=== PATIENT | male | born 1945 | race Caucasian/White ===

== ENCOUNTER 2022-05-25 17:21 | Inpatient (IN) | payer MEDICARE, MEDICAID ==
[~2022-05-25] VITALS: Ht 185.4 cm; Wt 73.0 kg
--- NOTE | 2022-05-25 17:21 | NUR ---
TO ER BED 1. [facility]IB [facility],2 EPISODES OF COFFEE GROUND EMESIS THIS PM, STATED HE HAD A BOWEL MOVEMENT THIS MORNING AND NO ABNORMALITY. PT HAS HISTORY OF GI BLEEDS. ATTACHED TO MONITOR, AWAITING MD GUERRERO.
--- NOTE | 2022-05-25 18:10 | NUR ---
IV ESTABLISHED R HAND 20G. LABS DRAWN AND SENT.
[2022-05-25] MEDS ORDERED: ONDANSETRON HCL/PF 4 MG/2 ML VIAL ONE (18:49)
[2022-05-25] MEDS ORDERED: PANTOPRAZOLE 40 MG VIAL ONE ×2 (18:49→21:50)
[2022-05-25] MEDS ORDERED: PANTOPRAZOLE 40 MG VIAL IV ONE ×2 (19:00→22:00)
[2022-05-25] MEDS ORDERED: ONDANSETRON HCL/PF 4 MG/2 ML VIAL IVP ONE (19:00)
[2022-05-25] MEDS ORDERED: IV NS 0.9% 1,000 ML BAG IV ONE (19:00)
--- NOTE | 2022-05-25 19:28 | NUR ---
COVID SWAB COLLECTED AND SENT TO LAB
[2022-05-25 19:53] LABS: ALANINE AMINOTRANSFERASE 11 U/L (12-78); ALBUMIN 2.9 g/dL (3.4-5.0); ALKALINE PHOSPHATASE 81 U/L (46-116); ASPARTATE AMINOTRANSFERASE 11 U/L (15-37); BILIRUBIN,DIRECT 0.1 mg/dL (0.0-0.2); BILIRUBIN,TOTAL 0.3 mg/dL (0.2-1.0); CALCIUM, SERUM 8.6 mg/dL (8.5-10.1); CARBON DIOXIDE 23 mmol/L (21-32); CHLORIDE 111 mmol/L (98-107); CREATININE 1.3 mg/dL (0.6-1.3); GLUCOSE 136 mg/dL (74-106); POTASSIUM 4.1 mmol/L (3.5-5.1); SODIUM SERUM 143 mmol/L (136-145); TOTAL PROTEIN, SERUM 6.8 g/dL (6.4-8.2); UREA NITROGEN, BLOOD 54 mg/dL (7-18)
[2022-05-25 20:06] LABS: BASOPHILS # (AUTO) 0.2 K/uL (0.0-0.2); BASOPHILS % (AUTO) 0.7 % (0.0-2.0); HEMATOCRIT 26 % (39-51); LYMPHOCYTES # (AUTO) 0.3 K/uL (0.8-4.8); LYMPHOCYTES % (AUTO) 1.4 % (20.0-44.0); MEAN CORPUSCULAR HGB CONC 31 g/dl (31.0-36.0); MEAN CORPUSCULAR VOLUME 76 fL (80-96); MONOCYTES # (AUTO) 0.6 K/uL (0.1-1.30); MONOCYTES % (AUTO) 2.4 % (2.0-12.0); NEUTROPHILS # (AUTO) 24.2 K/uL (1.8-8.9); NEUTROPHILS % (AUTO) 95.5 % (43.0-81.0); PLATELET COUNT (AUTO) 444 K/uL (150-450); RED BLOOD CELL COUNT(AUTO) 3.37 MIL/uL (4.5-6.0); WHITE BLOOD COUNT (AUTO) 25.3 K/uL (4.3-11.0)
--- NOTE | 2022-05-25 20:26 | NUR ---
PT TAKEN TO CT VIA JANN
--- NOTE | 2022-05-25 20:43 | NUR ---
PT RETURNED TO ER BED [address]
[2022-05-25 21:15] LABS: LIPASE 63 U/L (73-393)
[2022-05-25] MEDS ORDERED: VANCOMYCIN 1 GM VIAL ONE (21:51)
[2022-05-25] MEDS ORDERED: MINERAL OIL 133 ML (PYXIS) 1 EA ENEMA RC ONE ×2 (22:00→23:21)
[2022-05-25] MEDS ORDERED: VANCOMYCIN 1 GM in IV D5W 250 ML IV ONE (22:00)
[2022-05-25] MEDS ORDERED: ACETAMINOPHEN 325 MG TABLET PO PRN (22:00)
[2022-05-25] MEDS ORDERED: ONDANSETRON HCL/PF 4 MG/2 ML VIAL IVP PRN (22:00)
--- NOTE | 2022-05-25 22:10 | NUR ---
URINE COLLECTED AND SENT TO LAB
--- NOTE | 2022-05-25 22:13 | NUR ---
CATTLE DEALER AT PT'S BEDSIDE
[2022-05-25 22:26] LABS: HEMOGLOBIN 8.2 g/dL (13.5-17.5)
[2022-05-25 22:31] LABS: BILIRUBIN,URINE NEGATIVE (NEGATIVE); COLOR,URINE YELLOW (YELLOW); LEUKOCYTE ESTERASE ,URINE 2+ (NEGATIVE); NITRITE, URINE POSITIVE (NEGATIVE); PH,URINE 5.5 (5.0-8.0); PROTEIN,URINE 2+ mg/dl (NEGATIVE); UGLUCOSE NEGATIVE (NEGATIVE); UROBILINOGEN,URINE 0.2 EU/dL (0.2)
[2022-05-25] MEDS ORDERED: ONDANSETRON HCL/PF - ER 4 MG/2 ML VIAL IV ONE (23:00)
[2022-05-25] MEDS: IV NS 0.9% 1,000 ML IV PRN (23:01)
--- NOTE | 2022-05-25 23:19 | NUR ---
REPORT GIVEN TO STACI Pantoja RN FOR DANNY
[2022-05-25] MEDS ORDERED: IV NS 0.9% 1,000 ML IV ONE (23:30)
[2022-05-26] VITALS (15 sets, daily range): BP systolic 91–130; BP diastolic 49–63
--- NOTE | 2022-05-26 00:25 | NUR ---
RN RECEIVING NOTE FROM ER PATIENT BROUGHT TO UNIT FROM ER BY JANN. PATIENT PHYSICALLY TRANSFERRED FROM [facility] TO BED BY STAFF. A/OX0. NO S/S OF DISTRESS, BREATHING WITHOUT DIFFICULTY ON ROOM AIR. R-HAND #20 INTACT AND PATENT. TELE READS SR 99. SAFETY MEASURES IN PLACE: BED LOCKED AND AT LOWEST POSITION, RAILS UP X2, CALL OROPEZA WITHIN REACH. PATIENT WAS ORIENTED TO UNIT, BUT IS UNABLE TO UNDERSTAND. CALL OROPEZA GIVEN TO PATIENT AND INSTRUCTED ON ITS USE. TELE MONITOR ADMINISTERED TO PATIENT. ALL BELONGINGS ACCOUNTED FOR, LOGGED INTO SHEET, AND PLACE IN CHART. WILL CONTINUE TO MONITOR PATIENT.
--- NOTE | 2022-05-26 00:28 | NUR ---
PT TRANSFERRED TO 325-1 VIA ACLS PROTOCOL. VSS. ALL BELONGINGS WITH PT. PT TOLERATED TRANSFER WELL.
[2022-05-26] MEDS ORDERED: PIPERACILLIN /TAZOBACTAM 3.375 G VIAL IV ONE ×2 (01:13→05:29)
[2022-05-26] MEDS: ZOSYN IVPB 3.375 G in IV D5W 50ml IV SCH ×5 (01:19→23:08)
[2022-05-26] MEDS: IV NS 0.9% 1,000 ML IV PRN (01:19)
[2022-05-26 01:41] LABS: RBC,URINE TOO NUMEROUS TO COUN /HPF (0-2); WBC,URINE 21-50 /HPF (0-3)
[2022-05-26 01:42] LABS: BACTERIA,URINE Moderate /HPF (None Seen)
--- NOTE | 2022-05-26 06:33 | NUR ---
RN CLOSING NOTE PATIENT ASLEEP IN BED. A/OX0. NO S/S OF DISTRESS, BREATHING WITHOUT DIFFICULTY ON ROOM AIR. R-HAND #20 INTACT AND PATENT W/ NS 75ML/HR. TELE READS SR 94. SAFETY MEASURES IN PLACE: BED LOCKED AND AT LOWEST POSITION, RAILS UP X2, CALL OROPEZA WITHIN REACH. WILL ENDORSE TO NEXT SHIFT FOR DANNY.
--- NOTE | 2022-05-26 07:00 | NUR ---
LEAD SHOP OPERATOR OPENING NOTES PATIENT LAYING IN BED, A/O X 0, TOLERATING WELL ON ROOM AIR WITH NO S/S RESPIRATORY DISTRESS. NO COMPLAINTS OF PAIN OR DISCOMFORT AT THIS TIME. R HAND # 20 IV CLEAN, INTACT, AND INFUSING NS @ 75 ML/HR. TELE MONITOR IN PLACE READING NSR 91. SAFETY MEASURES IN PLACE: BED IN LOWEST LOCKED POSITION, SIDE RAILS UP X 2, CALL LIGHT WITHIN REACH. WILL CONTINUE TO MONITOR. Addendum: 05/26/22 at 1509 by SHANNAN DIOR RN BILATERAL SOFT WRIST RESTRAINTS IN PLACE WITH CIRCULATION/MOTOR/SENSATION INTACT DISTALLY X 2.
[2022-05-26 07:29] LABS: CARBON DIOXIDE 21 mmol/L (21-32); CHLORIDE 115 mmol/L (98-107); CHOLESTEROL 87 mg/dL (<200); CREATININE 1.5 mg/dL (0.6-1.3); GLUCOSE 129 mg/dL (74-106); HDL CHOLESTEROL 37 mg/dL (40-60); LDL 44 mg/dL (0-99); MAGNESIUM 2.1 mg/dL (1.8-2.4); PHOSPHORUS 3.5 mg/dL (2.5-4.9); POTASSIUM 3.8 mmol/L (3.5-5.1); SODIUM SERUM 145 mmol/L (136-145); TRIGLYCERIDES 70 mg/dL (30-150); UREA NITROGEN, BLOOD 52 mg/dL (7-18)
[2022-05-26] MEDS: PANTOPRAZOLE 40 MG VIAL IV SCH ×2 (08:16→21:07)
[2022-05-26] MEDS ORDERED: QUET50TA PO (08:25)
[2022-05-26] MEDS ORDERED: AMLO-212 PO (08:25)
[2022-05-26] MEDS ORDERED: MAGN400O6 PO (08:25)
[2022-05-26] MEDS ORDERED: CRAN425C6 PO (08:25)
[2022-05-26] MEDS ORDERED: CHOL100043 PO (08:25)
[2022-05-26] MEDS ORDERED: AMIN30LI2 PO (08:25)
[2022-05-26] MEDS ORDERED: BISA10SU11 RC (08:25)
[2022-05-26] MEDS ORDERED: NA P133E RC (08:25)
[2022-05-26] MEDS ORDERED: MULT-447 PO (08:25)
[2022-05-26] MEDS ORDERED: FERR325T23 PO (08:25)
[2022-05-26] MEDS ORDERED: CYAN-51 PO (08:25)
[2022-05-26] MEDS ORDERED: ATOR40TA PO (08:25)
[2022-05-26] MEDS ORDERED: LOSA100T31 PO (08:25)
[2022-05-26] MEDS ORDERED: DOXA2TAB2 PO (08:25)
[2022-05-26] MEDS ORDERED: ASPI-1169 PO (08:25)
[2022-05-26] MEDS ORDERED: TYL2T PO (08:25)
[2022-05-26] MEDS ORDERED: MIRT7.5T10 PO (08:25)
[2022-05-26] MEDS ORDERED: ASCO-352 PO (08:25)
[2022-05-26] MEDS ORDERED: ACET-868 PO (08:25)
[2022-05-26] MEDS ORDERED: CLON0.5T4 PO (08:25)
[2022-05-26 08:55] LABS: BASOPHILS # (AUTO) 0.1 K/uL (0.0-0.2); BASOPHILS % (AUTO) 0.3 % (0.0-2.0); LYMPHOCYTES # (AUTO) 0.6 K/uL (0.8-4.8); LYMPHOCYTES % (AUTO) 3.1 % (20.0-44.0); MEAN CORPUSCULAR HGB CONC 31 g/dl (31.0-36.0); MEAN CORPUSCULAR VOLUME 75 fL (80-96); MONOCYTES # (AUTO) 0.7 K/uL (0.1-1.30); MONOCYTES % (AUTO) 3.4 % (2.0-12.0); NEUTROPHILS # (AUTO) 17.9 K/uL (1.8-8.9); NEUTROPHILS % (AUTO) 93.2 % (43.0-81.0); PLATELET COUNT (AUTO) 344 K/uL (150-450); RED BLOOD CELL COUNT(AUTO) 2.65 MIL/uL (4.5-6.0); WHITE BLOOD COUNT (AUTO) 19.2 K/uL (4.3-11.0)
[2022-05-26 08:59] LABS: HEMATOCRIT 20 % (39-51)
[2022-05-26 09:02] LABS: HEMOGLOBIN 6.2 g/dL (13.5-17.5)
--- NOTE | 2022-05-26 09:42 | NUR ---
OCCUPATIONAL HEALTH NURSING DIRECTOR NOTES RECEIVED LAB RESULT HGB 6.2, WAS INFORMED AND ORDERED 1 UNIT PRBC TO BE TRANSFUSED. ORDER PLACED, FAMILY CALLED AND VOICEMAIL LEFT TO REQUEST CONSENT.
[2022-05-26] MEDS: VANCOMYCIN 0.75 GM in IV D5W 250 ML IV SCH ×2 (10:00→21:08)
--- NOTE | 2022-05-26 10:21 | NUR ---
OUTSIDE SALES ACCOUNT EXECUTIVE NOTES CONSENT OBTAINED FROM SISTER FOR BLOOD TRANSFUSION. FORM PLACED IN CHART.
[2022-05-26 11:56] LABS: LYMPHOCYTES % (MANUAL) 3 % (16-48); MONOCYTES % (MANUAL) 4 % (0-11.0); NEUTROPHILS % (MANUAL) 93 (42-76)
--- NOTE | 2022-05-26 13:40 | NUR ---
TANK REFINISHER NOTES PATIENT COMPLETED 1 UNIT pRBC INFUSION, VITAL SIGNS REMAINED STABLE DURING TRANSFUSION. FOLLOW UP HEMOGLOBIN LAB ORDERED PER MD REQUEST.
[2022-05-26 16:23] LABS: HEMOGLOBIN 7.2 g/dL (13.5-17.5)
--- NOTE | 2022-05-26 19:00 | NUR ---
FRIEND OF THE COURT CLOSING NOTES PATIENT LAYING IN BED, A/O X 0, TOLERATING WELL ON ROOM AIR WITH NO S/S RESPIRATORY DISTRESS. NO COMPLAINTS OF PAIN OR DISCOMFORT AT THIS TIME. L HAND # 22 IV CLEAN, INTACT, AND INFUSING NS @ 75 ML/HR. TELE MONITOR IN PLACE READING SR. SAFETY MEASURES IN PLACE: BED IN LOWEST LOCKED POSITION, SIDE RAILS UP X 2, CALL LIGHT WITHIN REACH. ALL NEEDS MET. WILL ENDORSE TO WAREHOUSE WORKER 2ND SHIFT FOR DANNY.
--- NOTE | 2022-05-26 19:30 | NUR ---
UNDERGROUND SUPERVISOR OPENING NOTE PATIENT AWAKE IN BED. A/O X 0. PT STABLE ON ROOM AIR. NO SOB OR S/S OF RESPIRATORY DISTRESS. BREATHING EVEN AND UNLABORED. ON EXTERNAL MOLDING PROCESS TECHNICIAN READING SR. IV ACCESS L HAND 22G RUNNING NS @ 75 ML/HR, INTACT AND PATENT. WITH HEREDIA DRAINING YELLOW URINE BY GRAVITY. WITH BILATERAL SOFT WRIST RESTRAINTS, NOTED WITH GOOD CIRCULATION. SAFETY PRECAUTIONS IN PLACE. BED IN LOWEST LOCKED POSITION, HOB ELEVATED, SIDE RAILS UP X3, AND CALL LIGHT AND TABLE WITHIN REACH. ALL NEEDS MET AT THIS TIME.
[2022-05-26 23:51] LABS: HEMOGLOBIN 6.7 g/dL (13.5-17.5)
[2022-05-27] VITALS (19 sets, daily range): BP systolic 96–138; BP diastolic 42–81
[2022-05-27] MEDS ORDERED: FENTANYL PF 100MCG/2ML AMPUL ONE (05:10)
[2022-05-27] MEDS ORDERED: FAMOTIDINE/PF INJ 20 MG/2 ML VIAL IV ONE (05:11)
[2022-05-27] MEDS ORDERED: SUCCINYLCHOLINE CHLORIDE 20 MG/ML VIAL ONE (05:12)
[2022-05-27] MEDS: ZOSYN IVPB 3.375 G in IV D5W 50ml IV SCH ×3 (05:16→17:18)
--- NOTE | 2022-05-27 05:40 | NUR ---
RN NOTE PT PICKED UP FOR EGD AT THIS TIME.
[2022-05-27] MEDS ORDERED: ANESTHESIA TRAY IN PYXIS 1 EA TRAY MC ONE ×2 (05:41→08:22)
[2022-05-27 06:39] LABS: CARBON DIOXIDE 23 mmol/L (21-32); CHLORIDE 115 mmol/L (98-107); CREATININE 1.4 mg/dL (0.6-1.3); GLUCOSE 106 mg/dL (74-106); POTASSIUM 3.7 mmol/L (3.5-5.1); SODIUM SERUM 144 mmol/L (136-145); UREA NITROGEN, BLOOD 45 mg/dL (7-18)
--- NOTE | 2022-05-27 07:00 | NUR ---
DIETARY COOK OPENING NOTE PT NOT IN ROOM AT THIS TIME. AMUSEMENT MACHINE MECHANIC NURSE REPORTED PT IS UNDERGOING EDG.
[2022-05-27] MEDS ORDERED: MEPERIDINE25 MG SYR 25 MG/ML VIAL ONE (07:16)
[2022-05-27] MEDS: SUCRALFATE 1 G/10 ML UDC GT SCH ×4 (07:30→21:18)
--- NOTE | 2022-05-27 07:45 | NUR ---
RN NOTE PT RETURNED TO UNIT AT 0745 S/P EDG BY DR BRODY. SLEEPING BUT EASILY AROUSABLE. ON TELE MONITOR WITH SINUS TACHYCARDIA @ 102 BPM. FLUIDS RESUMED VIA R AC. B/L WRIST RESTRAINTS IN PLACE. HEREDIA CATHETER INTACT, NO URINE OUTPUT NOTED AT THIS TIME. VITAL SIGNS TAKEN AND RECORDED. WILL CONTINUE TO CLOSELY MONITOR AND ASSIST. Addendum: 05/27/22 at 0805 by JOSHUA TONY RN PT ON O2 2 LPM VIA NC.
[2022-05-27] MEDS: IV NS 0.9% 1,000 ML IV PRN (08:20)
[2022-05-27] MEDS: PANTOPRAZOLE 40 MG VIAL IV SCH ×2 (09:14→21:18)
[2022-05-27 09:33] LABS: HEMOGLOBIN 8.4 g/dL (13.5-17.5)
[2022-05-27] MEDS: VANCOMYCIN 0.75 GM in IV D5W 250 ML IV SCH ×2 (10:21→21:24)
--- NOTE | 2022-05-27 10:23 | NUR ---
WOUND CARE CONSULT: PT PRESENTS WITH SACRAL SCARRING WITH INCONTINENCE ASSOCIATED SKIN DAMAGE OVER PREVIOUS SCARRING (WHICH EXTENDS TO BUTTOCKS), PRESENT ON ADMISSION. RECOMMENDATIONS MADE FOR SKIN PROTECTION. DISCUSSED WITH NURSING STAFF. IN AGREEMENT WITH PLAN OF CARE. Addendum: 05/27/22 at 1024 by BAO HADDAD WNDNU Amended: Links added.
[2022-05-27] MEDS: Z GUARD REMEDY 4 OZ OINT TP SCH (10:40)
--- NOTE | 2022-05-27 12:15 | NUR ---
RN NOTE COVID ANTIGEN TEST PERFORMED ON PT PER MD ORDER. COLLECTED AND DROPPED OFF TO LAB.
--- NOTE | 2022-05-27 12:30 | NUR ---
RN NOTE PT UNABLE TO TOLERATE REGULAR DIET AT THIS TIME, ONLY APPLE SAUCE. SWITCHED TO PUREED DIET. PENDING SWALLOW EVAL TOMORROW PER SPEECH THERAPIST.
[2022-05-27 13:26] LABS: OCCULT BLOOD STOOL POSITIVE (NEGATIVE)
--- NOTE | 2022-05-27 18:50 | NUR ---
WIND PROJECT MANAGER CLOSING NOTE PT SLEEPING IN BED AT THIS TIME. A/O X1. EASILY AROUSABLE AND CONFUSED. STABLE ON O2 2 LPM VIA NC WITH NO S/S OF SOB OR LABORED BREATHING. ON TELE MONITOR WITH CURRENT READING OF SR WITH PAC @ 63 BPM. IV RAC #18G RUNNING 0.9% NS @ 75 ML/HR. B/L WRIST RESTRAINTS MAINTAINED. HEREDIA CATHETER INTACT. SAFETY PRECAUTIONS MAINTAINED: BED LOCKED AND IN LOW POSITION; SIDE RAILS UP X3; CALL LIGHT AND TRAY TABLE WITHIN REACH. WILL ENDORSE DANNY TO HALVER MACHINE OPERATOR NURSE.
--- NOTE | 2022-05-27 20:09 | NUR ---
RN OPENING NOTE PATIENT AWAKE IN BED. A/OX0. NO S/S OF DISTRESS, BREATHING WITHOUT DIFFICULTY ON ROOM AIR. RAC #18 INTACT AND PATENT WITH NS 75ML/HR; R-HAND #22 SL INTACT AND PATENT. TELE READS SR 62. SAFETY MEASURES IN PLACE: BED LOCKED AND AT LOWEST POSITION, RAILS UP X2, CALL OROPEZA WITHIN REACH. WILL CONTINUE TO MONITOR PATIENT.
[2022-05-28] VITALS: BP_SYST 130; BP_SYST 84; BP_DIAS 52; BP_DIAS 70
[2022-05-28] MEDS: IV NS 0.9% 1,000 ML IV PRN (00:27)
[2022-05-28] MEDS: ZOSYN IVPB 3.375 G in IV D5W 50ml IV SCH ×3 (00:27→11:20)
[2022-05-28 04:00] VITALS: BP_SYST 101; BP_SYST 117; BP_DIAS 59; BP_DIAS 76
--- NOTE | 2022-05-28 06:37 | NUR ---
RN CLOSING NOTE PATIENT ASLEEP IN BED. A/OX0, EYE-OPENING & NONSENSICAL SPEECH. NO S/S OF DISTRESS, BREATHING WITHOUT DIFFICULTY ON ROOM AIR. RAC #18 INTACT AND PATENT W/ NS 75ML/HR. R-HAND #22 SL INTACT AND PATENT. TELE READS SR 65 W/ PACs. SAFETY MEASURES IN PLACE: BED LOCKED AND AT LOWEST POSITION, RAILS UP X2, CALL OROPEZA WITHIN REACH. WILL ENDORSE TO NEXT SHIFT FOR DANNY.
--- NOTE | 2022-05-28 07:27 | NUR ---
SECURITY ARCHITECT OPENING NOTE RECEIVED PATIENT IN BED.SLEEPING BY TIRE REPAIRMAN NURSE REPORT A/O X 0. PT STABLE ON ROOM AIR. NO SOB OR S/S OF RESPIRATORY DISTRESS. BREATHING EVEN AND UNLABORED. ON EXTERNAL BUS INSPECTOR READING SR. IV ACCESS L HAND 22G RUNNING NS @ 75 ML/HR, INTACT AND PATENT. WITH HEREDIA DRAINING YELLOW URINE BY GRAVITY. WITH BILATERAL SOFT WRIST RESTRAINTS, NOTED WITH GOOD CIRCULATION. SAFETY PRECAUTIONS IN PLACE. BED IN LOWEST LOCKED POSITION, HOB ELEVATED, SIDE RAILS UP X3, AND CALL LIGHT AND TABLE WITHIN REACH.WILL FALLOW POC
[2022-05-28] MEDS ORDERED: SUCRALFATE 1 G/10 ML UDC PO SCH (07:34)
[2022-05-28 08:00] VITALS: BP 115/54
[2022-05-28] MEDS: PANTOPRAZOLE 40 MG VIAL IV SCH ×2 (08:27→22:06)
[2022-05-28] MEDS: Z GUARD REMEDY 4 OZ OINT TP PRN ×2 (08:28→08:29)
[2022-05-28] MEDS: Z GUARD REMEDY 4 OZ OINT TP SCH (08:30)
[2022-05-28 09:03] LABS: CALCIUM, SERUM 8.1 mg/dL (8.5-10.1); CARBON DIOXIDE 23 mmol/L (21-32); CHLORIDE 117 mmol/L (98-107); CREATININE 1.2 mg/dL (0.6-1.3); GLUCOSE 103 mg/dL (74-106); POTASSIUM 3.5 mmol/L (3.5-5.1); SODIUM SERUM 146 mmol/L (136-145); UREA NITROGEN, BLOOD 34 mg/dL (7-18)
[2022-05-28] MEDS: VANCOMYCIN 0.75 GM in IV D5W 250 ML IV SCH ×2 (09:13→22:05)
[2022-05-28 12:00] VITALS: BP 126/72
[2022-05-28 13:28] LABS: BASOPHILS % (AUTO) 0.6 % (0.0-2.0); EOSINOPHILS % (AUTO) 6.4 % (0.0-6.0); HEMATOCRIT 26 % (39-51); HEMOGLOBIN 8.2 g/dL (13.5-17.5); LYMPHOCYTES # (AUTO) 0.7 K/uL (0.8-4.8); MEAN CORPUSCULAR HGB CONC 32 g/dl (31.0-36.0); MEAN CORPUSCULAR VOLUME 81 fL (80-96); MONOCYTES # (AUTO) 0.8 K/uL (0.1-1.30); MONOCYTES % (AUTO) 11.3 % (2.0-12.0); NEUTROPHILS # (AUTO) 4.7 K/uL (1.8-8.9); NEUTROPHILS % (AUTO) 70.7 % (43.0-81.0); PLATELET COUNT (AUTO) 245 K/uL (150-450); RED BLOOD CELL COUNT(AUTO) 3.21 MIL/uL (4.5-6.0); WHITE BLOOD COUNT (AUTO) 6.7 K/uL (4.3-11.0)
[2022-05-28] MEDS: MEROPENEM 1 G in IV NS 0.9% 100 ML IV SCH ×2 (13:42→21:16)
[2022-05-28 16:00] VITALS: BP 134/73
[2022-05-28] MEDS: ENSURE ENLIVE 237 ML LIQUID (VANILLA) PO SCH (18:08)
[2022-05-28] MEDS: SUCRALFATE 1 G TABLET PO SCH ×2 (18:09→22:06)
--- NOTE | 2022-05-28 18:58 | NUR ---
RESTAURANT MANAGEMENT INTERNSHIP CLOSING NOTES PATIENT LAYING IN BED, A/O X 0, TOLERATING WELL ON ROOM AIR WITH NO S/S RESPIRATORY DISTRESS. NO COMPLAINTS OF PAIN OR DISCOMFORT AT THIS TIME. L HAND # 22 IV CLEAN, INTACT, AND INFUSING NS @ 75 ML/HR. TELE MONITOR IN PLACE READING SR. SAFETY MEASURES IN PLACE: BED IN LOWEST LOCKED POSITION, SIDE RAILS UP X 2, CALL LIGHT WITHIN REACH. ALL NEEDS MET. WILL ENDORSE TO DRYWALL TAPER HELPER FOR DANNY.
[2022-05-28 20:00] VITALS: BP 105/60
--- NOTE | 2022-05-28 20:10 | NUR ---
RN OPENING NOTE PATIENT AWAKE IN BED. VERBAL, BUT INCOHERENT (BASELINE). NO S/S OF DISTRESS, BREATHING WITHOUT DIFFICULTY ON ROOM AIR. RAC #18 INTACT AND PATENT W/ NS 75 ML/HR. TELE READS SB 59. SAFETY MEASURES IN PLACE: BED LOCKED IN LOWEST POSITION, RAILS UP X2, CALL OROPEZA WITHIN REACH. WILL CONTINUE TO MONITOR PATIENT.
[2022-05-29] VITALS: BP 136/61
[2022-05-29 04:00] VITALS: BP 133/53
[2022-05-29] MEDS: IV NS 0.9% 1,000 ML IV PRN (04:12)
[2022-05-29] MEDS: MEROPENEM 1 G in IV NS 0.9% 100 ML IV SCH ×2 (04:32→11:50)
[2022-05-29 06:10] LABS: CALCIUM, SERUM 8.2 mg/dL (8.5-10.1); CARBON DIOXIDE 23 mmol/L (21-32); CHLORIDE 112 mmol/L (98-107); CREATININE 1.1 mg/dL (0.6-1.3); GLUCOSE 94 mg/dL (74-106); SODIUM SERUM 143 mmol/L (136-145); UREA NITROGEN, BLOOD 22 mg/dL (7-18)
[2022-05-29 06:34] LABS: BAND % (MANUAL) 2 % (0.0-5.0); EOSINOPHILS % (MANUAL) 7 % (0-4); LYMPHOCYTES % (MANUAL) 13 % (16-48); MONOCYTES % (MANUAL) 4 % (0-11.0); NEUTROPHILS % (MANUAL) 74 (42-76)
--- NOTE | 2022-05-29 06:45 | NUR ---
RN CLOSING NOTE PATIENT ASLEEP IN BED. A/OX EYE-OPENING. NO S/S OF DISTRESS, BREATHING WITHOUT DIFFICULTY ON ROOM AIR. RAC #18 INTACT AND PATENT W/ NS 75ML/HR. TELE READS SB 55 W/ PACs. SAFETY MEASURES IN PLACE: BED LOCKED AND AT LOWEST POSITION, RAILS UP X2, CALL OROPEZA WITHIN REACH. WILL ENDORSE TO NEXT SHIFT FOR DANNY.
[2022-05-29 08:00] VITALS: BP 131/69
[2022-05-29] MEDS: SUCRALFATE 1 G TABLET PO SCH ×2 (08:15→11:18)
[2022-05-29] MEDS: ENSURE ENLIVE 237 ML LIQUID (VANILLA) PO SCH ×2 (08:15→11:19)
[2022-05-29] MEDS: PANTOPRAZOLE 40 MG VIAL IV SCH (08:16)
[2022-05-29] MEDS: Z GUARD REMEDY 4 OZ OINT TP SCH (09:29)
[2022-05-29] MEDS: VANCOMYCIN 0.75 GM in IV D5W 250 ML IV SCH (09:33)
[2022-05-29] MEDS ORDERED: POTASSIUM CHLORIDE 20 MEQ POWDER PACKET PO SCH (10:00)
[2022-05-29] MEDS: POTASSIUM CL. PREMIX PERIPHER. 50 ML IV SCH ×3 (10:37→13:10)
--- NOTE | 2022-05-29 10:59 | NUR ---
RN NOTES - SPEECH THERAPIST SAW PATIENT AND NOTICED THAT THE PATIENT IS HARD OF SWALLOWING. CALLED PHARMACY TO SWITCH POTASSIUM CHLORIDE TO IV FROM PO.
--- NOTE | 2022-05-29 11:09 | NUR ---
SPEECH CLINICIAN OPENING NOTE RECEIVED PATIENT AWAKE IN BED, AWARE OF SELF ONLY, ON ROOM AIR TOLERATING WELL WITH NO SOB OR S/S OF RESPIRATORY DISTRESS. BREATHING EVEN AND UNLABORED. TELE MONITOR READING SHOWS SINUS RHYTHM WITH PACS AT 64 BPM, IV ACCESS AT RAC 18G RUNNING NS @ 75 ML/HR, INTACT AND PATENT, FLUSHING WELL. WITH BILATERAL SOFT WRIST RESTRAINTS, NOTED WITH GOOD CIRCULATION. SAFETY PRECAUTIONS IN PLACE: BED IN LOWEST LOCKED POSITION, HOB ELEVATED, SIDE RAILS UP X3, AND CALL LIGHT AND TRAY TABLE WITHIN REACH. WILL CONTINUE TO MONITOR DURING MY SHIFT. Addendum: 05/29/22 at 1114 by ADRIANNE CEJA RN CORRECT TIME: 4640
[2022-05-29] MEDS ORDERED: PANT40TA2 PO (11:59)
[2022-05-29] MEDS ORDERED: MERO1VIA23 IV (11:59)
[2022-05-29] MEDS ORDERED: SUCR1TAB31 PO (11:59)
--- NOTE | 2022-05-29 14:45 | NUR ---
AIR TRAFFIC CONTROL SPECIALIST DISCHARGE NOTE [facility]. PT AWARE TO SELF ONLY, SPEECH IS LIMITED TO A FEW WORDS, UNABLE TO MAKE NEEDS KNOWN. ON ROOM AIR TOLERATING WELL O2 SAT OF 96%. NO SOB NOTED, NOT IN ANY SIGNS OF RESPIRATORY DISTRESS. LAST TELE READING WAS SR 64 WITH PAC. VITAL SIGNS TAKEN. STABLE, AND RECORDED. PT'S SKIN REASSESSED, SAME SKIN CONDITIONS NOTED ADMISSION. PICTURES TAKEN. NO BELONGINGS ACCOUNTED FOR. DISCHARGE INSTRUCTIONS GIVEN TO NIKITA JAIME. MEDS RECONCILIATION AND COVID TESTS GIVEN. IV ACCESS RFA G#20 MAINTAINED FOR IV ATB AT THE . PT LEFT THE UNIT AT 1435, PICKED UP BY 2 PILOT CONTROL OPERATOR. CHARGED NURSE AND MD AWARE OF THE DC.
[2022-05-29] MEDS ORDERED: MUPIROCIN OINT 2% 22 GM TUBE NS SCH (21:00)
== END 2022-05-29 14:35 | DRG 871 ==
LOC: ER 17:30 → TELE 23:13
PROVIDERS: ADMIT Nurse Practitioner Acute Care; ATTEND Nurse Practitioner Acute Care
PROC: 30233N1 Transfusion of Nonautologous Red Blood Cells into Peripheral Vein, Percutaneous Approach (ICD-10-PCS; 2022-05-26)
PROC: 0DB68ZX Excision of Stomach, Via Natural or Artificial Opening Endoscopic, Diagnostic (ICD-10-PCS; principal; 2022-05-27)
DX: A41.9 Sepsis, unspecified organism (principal); G93.41 Metabolic encephalopathy; K21.01 Gastro-esophageal reflux disease with esophagitis, with bleeding; K29.71 Gastritis, unspecified, with bleeding; J15.9 Unspecified bacterial pneumonia; K86.1 Other chronic pancreatitis; E44.0 Moderate protein-calorie malnutrition; N17.9 Acute kidney failure, unspecified; J44.0 Chronic obstructive pulmonary disease with (acute) lower respiratory infection; E87.0 Hyperosmolality and hypernatremia; D62 Acute posthemorrhagic anemia; K44.9 Diaphragmatic hernia without obstruction or gangrene; F01.50 Vascular dementia, unspecified severity, without behavioral disturbance, psychotic disturbance, mood disturbance, and anxiety; Y95 Nosocomial condition; D50.9 Iron deficiency anemia, unspecified; E88.09 Other disorders of plasma-protein metabolism, not elsewhere classified; N30.90 Cystitis, unspecified without hematuria; K56.41 Fecal impaction; I10 Essential (primary) hypertension
CPT/HCPCS: 36415; 70450-TC; 71045-TC; 80048-TC; 80061-TC; 80076-TC; 80202-TC; 81001; 82272-TC; 83605-TC; 83690-TC; 83735-TC; 84100-TC; 85025-TC; 85027-TC; 85730-TC; 86850-TC; 87040-TC; 87081-TC; 87086-TC; 87186-TC; 92526; 92611-TC; 97110-TC; 97530-TC; C9113; C9803; G0378; J0330; J2175; J2185; J2405; J2543; J2704; J2765; J3010; J3370; J3480; J3490; J7030; J7040; J7050; J7060; P9016

== ENCOUNTER 2022-08-21 17:10 | Inpatient (IN) | payer MEDICARE, OTHER ==
[~2022-08-21] VITALS: Ht 170.2 cm; Wt 73.5 kg
[~2022-08-21 17:10] MED LIST: ACET-868 PO; AMIN30LI2 PO; AMLO-212 PO; ASCO-352 PO; ASPI-1169 PO; ATOR40TA PO; BISA10SU11 RC; CHOL100043 PO; CLON0.5T4 PO; CRAN425C6 PO; CYAN-51 PO; DOXA2TAB2 PO; FERR325T23 PO; LOSA100T31 PO; MAGN400O6 PO; MERO1VIA23 IV; MIRT7.5T10 PO; MULT-447 PO; NA P133E RC; PANT40TA2 PO; QUET50TA PO; SUCR1TAB31 PO; TYL2T PO
[2022-08-21] MEDS ORDERED: SUCR1ORA15 PO (17:51)
[2022-08-21 17:54] LABS: BASOPHILS # (AUTO) 0.1 K/uL (0.0-0.2); BASOPHILS % (AUTO) 0.7 % (0.0-2.0); EOSINOPHILS % (AUTO) 5.1 % (0.0-6.0); HEMATOCRIT 26 % (39-51); HEMOGLOBIN 7.9 g/dL (13.5-17.5); LYMPHOCYTES # (AUTO) 1.6 K/uL (0.8-4.8); LYMPHOCYTES % (AUTO) 19.4 % (20.0-44.0); MEAN CORPUSCULAR HGB CONC 31 g/dl (31.0-36.0); MEAN CORPUSCULAR VOLUME 74 fL (80-96); MONOCYTES # (AUTO) 0.5 K/uL (0.1-1.30); MONOCYTES % (AUTO) 6.2 % (2.0-12.0); NEUTROPHILS # (AUTO) 5.8 K/uL (1.8-8.9); NEUTROPHILS % (AUTO) 68.6 % (43.0-81.0); PLATELET COUNT (AUTO) 342 K/uL (150-450); RED BLOOD CELL COUNT(AUTO) 3.46 MIL/uL (4.5-6.0); WHITE BLOOD COUNT (AUTO) 8.4 K/uL (4.3-11.0)
[2022-08-21] MEDS ORDERED: NA PHOS,M-B/NA PHOS,DI-BA 1 EA ENEMA RC PRN (18:30)
[2022-08-21] MEDS ORDERED: ONDANSETRON HCL/PF 4 MG/2 ML VIAL IVP PRN (18:30)
[2022-08-21] MEDS ORDERED: MAG HYDROX/AL HYDROX/SIMETH 30 ML UDC PO PRN (18:30)
[2022-08-21] MEDS ORDERED: MAGNESIUM HYDROXIDE 30 ML UDC PO PRN ×2 (18:30)
[2022-08-21] MEDS ORDERED: ACETAMINOPHEN 325 MG TABLET PO PRN (18:30)
[2022-08-21] MEDS ORDERED: Z GUARD REMEDY 4 OZ OINT TP PRN (18:30)
[2022-08-21] MEDS: clonazePAM 0.5 MG TABLET PO SCH (21:00)
[2022-08-21] MEDS: QUETIAPINE FUMARATE 25 MG TABLET PO SCH (21:00)
[2022-08-21] MEDS ORDERED: clonazePAM 0.5 MG TABLET ONE (21:09)
[2022-08-21] MEDS ORDERED: QUETIAPINE FUMARATE 25 MG TABLET ONE (21:10)
[2022-08-21 21:34] LABS: ALBUMIN 3.2 g/dL (3.4-5.0); BILIRUBIN,DIRECT 0.1 mg/dL (0.0-0.2); BILIRUBIN,TOTAL 0.2 mg/dL (0.2-1.0); CALCIUM, SERUM 8.6 mg/dL (8.5-10.1); CREATININE 1.1 mg/dL (0.6-1.3); TOTAL PROTEIN, SERUM 6.9 g/dL (6.4-8.2)
[2022-08-21 22:09] LABS: POTASSIUM 6.2 mmol/L (3.5-5.1)
[2022-08-21] MEDS: IV NS 0.9% 1,000 ML IV PRN (22:15)
[2022-08-21 22:44] LABS: EOSINOPHILS % (MANUAL) 7 % (0-4); LYMPHOCYTES % (MANUAL) 21 % (16-48); MONOCYTES % (MANUAL) 2 % (0-11.0); NEUTROPHILS % (MANUAL) 70 (42-76)
[2022-08-21 23:00] VITALS: BP_SYST 119; BP_SYST 128; BP_DIAS 56; BP_DIAS 58
[2022-08-21] MEDS: DOXAZOSIN MESYLATE (1 MG) 1 MG TABLET PO SCH (23:38)
[2022-08-21] MEDS: MIRTAZAPINE 15 MG TABLET PO SCH (23:38)
[2022-08-22 04:00] VITALS: BP 112/60
[2022-08-22 04:32] VITALS: BP 112/60
[2022-08-22 07:00] VITALS: BP 107/55
[2022-08-22] MEDS: SUCRALFATE 1 G/10 ML UDC PO SCH ×2 (08:32→16:03)
[2022-08-22] MEDS: FERROUS SULFATE (325 MG) 325 MG/TAB TABLET PO SCH (08:32)
[2022-08-22] MEDS: QUETIAPINE FUMARATE 25 MG TABLET PO SCH ×2 (08:32→21:56)
[2022-08-22] MEDS: clonazePAM 0.5 MG TABLET PO SCH ×2 (08:32→21:56)
[2022-08-22] MEDS: PANTOPRAZOLE 40 MG VIAL IV SCH (08:33)
[2022-08-22] MEDS: LOSARTAN POTASSIUM 50 MG TABLET PO SCH (08:41)
[2022-08-22] MEDS: AMLODIPINE BESYLATE 5 MG TABLET PO SCH (08:41)
[2022-08-22 08:46] LABS: BASOPHILS # (AUTO) 0.1 K/uL (0.0-0.2); BASOPHILS % (AUTO) 1.1 % (0.0-2.0); EOSINOPHILS % (AUTO) 8.1 % (0.0-6.0); HEMATOCRIT 24 % (39-51); HEMOGLOBIN 7.5 g/dL (13.5-17.5); LYMPHOCYTES # (AUTO) 1.3 K/uL (0.8-4.8); LYMPHOCYTES % (AUTO) 27.4 % (20.0-44.0); MEAN CORPUSCULAR HGB CONC 31 g/dl (31.0-36.0); MEAN CORPUSCULAR VOLUME 74 fL (80-96); MONOCYTES # (AUTO) 0.4 K/uL (0.1-1.30); MONOCYTES % (AUTO) 7.5 % (2.0-12.0); NEUTROPHILS # (AUTO) 2.7 K/uL (1.8-8.9); NEUTROPHILS % (AUTO) 55.9 % (43.0-81.0); PLATELET COUNT (AUTO) 293 K/uL (150-450); RED BLOOD CELL COUNT(AUTO) 3.26 MIL/uL (4.5-6.0); WHITE BLOOD COUNT (AUTO) 4.9 K/uL (4.3-11.0)
[2022-08-22 08:50] LABS: CALCIUM, SERUM 8.2 mg/dL (8.5-10.1); CREATININE 0.9 mg/dL (0.6-1.3); MAGNESIUM 2.3 mg/dL (1.8-2.4); PHOSPHORUS 3.9 mg/dL (2.5-4.9)
[2022-08-22 11:39] LABS: OCCULT BLOOD STOOL POSITIVE (NEGATIVE)
[2022-08-22 12:00] VITALS: BP 123/62
[2022-08-22] MEDS: IV NS 0.9% 1,000 ML IV PRN (13:21)
[2022-08-22 16:00] VITALS: BP_SYST 109; BP_SYST 158; BP_DIAS 53; BP_DIAS 78
[2022-08-22 20:00] VITALS: BP 120/57
[2022-08-22] MEDS: MIRTAZAPINE 15 MG TABLET PO SCH (21:56)
[2022-08-22] MEDS: DOXAZOSIN MESYLATE (1 MG) 1 MG TABLET PO SCH (21:57)
[2022-08-23] VITALS (12 sets, daily range): BP systolic 106–159; BP diastolic 50–77
[2022-08-23 06:28] LABS: BASOPHILS # (AUTO) 0.1 K/uL (0.0-0.2); BASOPHILS % (AUTO) 1.2 % (0.0-2.0); HEMATOCRIT 24 % (39-51); LYMPHOCYTES % (AUTO) 21.8 % (20.0-44.0); MEAN CORPUSCULAR HGB CONC 29 g/dl (31.0-36.0); MEAN CORPUSCULAR VOLUME 78 fL (80-96); MONOCYTES # (AUTO) 0.5 K/uL (0.1-1.30); MONOCYTES % (AUTO) 10.7 % (2.0-12.0); NEUTROPHILS # (AUTO) 2.7 K/uL (1.8-8.9); NEUTROPHILS % (AUTO) 57.3 % (43.0-81.0); PLATELET COUNT (AUTO) 227 K/uL (150-450); RED BLOOD CELL COUNT(AUTO) 3.02 MIL/uL (4.5-6.0); WHITE BLOOD COUNT (AUTO) 4.6 K/uL (4.3-11.0)
[2022-08-23 06:34] LABS: HEMOGLOBIN 6.9 g/dL (13.5-17.5)
[2022-08-23 07:07] LABS: CALCIUM, SERUM 8.1 mg/dL (8.5-10.1); CARBON DIOXIDE 19 mmol/L (21-32); CHLORIDE 110 mmol/L (98-107); CREATININE 0.8 mg/dL (0.6-1.3); GLUCOSE 83 mg/dL (74-106); POTASSIUM 4.1 mmol/L (3.5-5.1); SODIUM SERUM 138 mmol/L (136-145); UREA NITROGEN, BLOOD 24 mg/dL (7-18)
[2022-08-23] MEDS: SUCRALFATE 1 G/10 ML UDC PO SCH ×2 (08:57→16:16)
[2022-08-23] MEDS: PANTOPRAZOLE 40 MG VIAL IV SCH (08:57)
[2022-08-23] MEDS: FERROUS SULFATE (325 MG) 325 MG/TAB TABLET PO SCH (08:57)
[2022-08-23] MEDS: LOSARTAN POTASSIUM 50 MG TABLET PO SCH (08:58)
[2022-08-23] MEDS: AMLODIPINE BESYLATE 5 MG TABLET PO SCH (08:58)
[2022-08-23] MEDS: QUETIAPINE FUMARATE 25 MG TABLET PO SCH ×2 (08:58→20:30)
[2022-08-23] MEDS: clonazePAM 0.5 MG TABLET PO SCH ×2 (08:58→20:31)
[2022-08-23 12:21] LABS: BAND % (MANUAL) 2 % (0.0-5.0); EOSINOPHILS % (MANUAL) 5 % (0-4); LYMPHOCYTES % (MANUAL) 21 % (16-48); MONOCYTES % (MANUAL) 6 % (0-11.0); NEUTROPHILS % (MANUAL) 65 (42-76)
[2022-08-23] MEDS: IV NS 0.9% 1,000 ML IV PRN (17:46)
[2022-08-23 20:08] LABS: BASOPHILS # (AUTO) 0.1 K/uL (0.0-0.2); EOSINOPHILS % (AUTO) 4.4 % (0.0-6.0); HEMATOCRIT 33 % (39-51); HEMOGLOBIN 9.4 g/dL (13.5-17.5); MEAN CORPUSCULAR HGB CONC 28 g/dl (31.0-36.0); MEAN CORPUSCULAR VOLUME 85 fL (80-96); MONOCYTES # (AUTO) 0.4 K/uL (0.1-1.30); MONOCYTES % (AUTO) 6.3 % (2.0-12.0); NEUTROPHILS % (AUTO) 70.3 % (43.0-81.0); PLATELET COUNT (AUTO) 318 K/uL (150-450); RED BLOOD CELL COUNT(AUTO) 3.91 MIL/uL (4.5-6.0); WHITE BLOOD COUNT (AUTO) 5.7 K/uL (4.3-11.0)
[2022-08-23] MEDS: MIRTAZAPINE 15 MG TABLET PO SCH (21:10)
[2022-08-23] MEDS: DOXAZOSIN MESYLATE (1 MG) 1 MG TABLET PO SCH (21:10)
[2022-08-23 21:51] LABS: EOSINOPHILS % (MANUAL) 4 % (0-4); LYMPHOCYTES % (MANUAL) 21 % (16-48); MONOCYTES % (MANUAL) 4 % (0-11.0); NEUTROPHILS % (MANUAL) 71 (42-76)
[2022-08-24] VITALS: BP 135/77
[2022-08-24 04:00] VITALS: BP 121/76
[2022-08-24 07:07] LABS: BASOPHILS % (AUTO) 0.8 % (0.0-2.0); EOSINOPHILS % (AUTO) 6.2 % (0.0-6.0); HEMATOCRIT 27 % (39-51); HEMOGLOBIN 8.6 g/dL (13.5-17.5); LYMPHOCYTES # (AUTO) 0.9 K/uL (0.8-4.8); LYMPHOCYTES % (AUTO) 16.5 % (20.0-44.0); MEAN CORPUSCULAR HGB CONC 31 g/dl (31.0-36.0); MEAN CORPUSCULAR VOLUME 76 fL (80-96); MONOCYTES # (AUTO) 0.4 K/uL (0.1-1.30); MONOCYTES % (AUTO) 7.4 % (2.0-12.0); NEUTROPHILS # (AUTO) 3.9 K/uL (1.8-8.9); NEUTROPHILS % (AUTO) 69.1 % (43.0-81.0); PLATELET COUNT (AUTO) 306 K/uL (150-450); RED BLOOD CELL COUNT(AUTO) 3.59 MIL/uL (4.5-6.0); WHITE BLOOD COUNT (AUTO) 5.6 K/uL (4.3-11.0)
[2022-08-24 07:22] LABS: IRON, SERUM 18 ug/dl (50-175); TOTAL IRON BINDING CAPACITY 277 ug/dl (250-450)
[2022-08-24 07:24] LABS: CALCIUM, SERUM 8.2 mg/dL (8.5-10.1); CREATININE 0.9 mg/dL (0.6-1.3); POTASSIUM 3.7 mmol/L (3.5-5.1)
[2022-08-24 08:00] VITALS: BP 123/75
[2022-08-24] MEDS: QUETIAPINE FUMARATE 25 MG TABLET PO SCH ×2 (09:14→21:20)
[2022-08-24] MEDS: PANTOPRAZOLE 40 MG VIAL IV SCH (09:14)
[2022-08-24] MEDS: clonazePAM 0.5 MG TABLET PO SCH ×2 (09:14→21:20)
[2022-08-24] MEDS: FERROUS SULFATE (325 MG) 325 MG/TAB TABLET PO SCH (09:14)
[2022-08-24] MEDS: AMLODIPINE BESYLATE 5 MG TABLET PO SCH (09:15)
[2022-08-24] MEDS: LOSARTAN POTASSIUM 50 MG TABLET PO SCH (09:15)
[2022-08-24] MEDS: SUCRALFATE 1 G/10 ML UDC PO SCH ×2 (09:15→16:14)
[2022-08-24] MEDS: IV NS 0.9% 1,000 ML IV PRN ×2 (09:26→23:14)
[2022-08-24 16:00] VITALS: BP 137/81
[2022-08-24 20:00] VITALS: BP 152/73
[2022-08-24] MEDS: DOXAZOSIN MESYLATE (1 MG) 1 MG TABLET PO SCH (21:21)
[2022-08-24] MEDS: MIRTAZAPINE 15 MG TABLET PO SCH (21:21)
[2022-08-25] VITALS (8 sets, daily range): BP systolic 103–127; BP diastolic 46–68
[2022-08-25 06:36] LABS: BASOPHILS % (AUTO) 0.6 % (0.0-2.0); EOSINOPHILS % (AUTO) 9.1 % (0.0-6.0); HEMATOCRIT 26 % (39-51); HEMOGLOBIN 8.1 g/dL (13.5-17.5); LYMPHOCYTES % (AUTO) 18.6 % (20.0-44.0); MEAN CORPUSCULAR HGB CONC 31 g/dl (31.0-36.0); MEAN CORPUSCULAR VOLUME 76 fL (80-96); MONOCYTES # (AUTO) 0.6 K/uL (0.1-1.30); MONOCYTES % (AUTO) 11.4 % (2.0-12.0); NEUTROPHILS # (AUTO) 3.3 K/uL (1.8-8.9); NEUTROPHILS % (AUTO) 60.3 % (43.0-81.0); PLATELET COUNT (AUTO) 269 K/uL (150-450); RED BLOOD CELL COUNT(AUTO) 3.45 MIL/uL (4.5-6.0); WHITE BLOOD COUNT (AUTO) 5.4 K/uL (4.3-11.0)
[2022-08-25 06:51] LABS: CALCIUM, SERUM 8.2 mg/dL (8.5-10.1); CARBON DIOXIDE 22 mmol/L (21-32); CHLORIDE 111 mmol/L (98-107); GLUCOSE 88 mg/dL (74-106); POTASSIUM 3.5 mmol/L (3.5-5.1); SODIUM SERUM 140 mmol/L (136-145); UREA NITROGEN, BLOOD 15 mg/dL (7-18)
[2022-08-25] MEDS: SUCRALFATE 1 G/10 ML UDC PO SCH ×2 (08:33→16:21)
[2022-08-25] MEDS: PANTOPRAZOLE 40 MG/PACK PACK PO SCH (08:34)
[2022-08-25] MEDS: AMLODIPINE BESYLATE 5 MG TABLET PO SCH (08:35)
[2022-08-25] MEDS: LOSARTAN POTASSIUM 50 MG TABLET PO SCH (08:35)
[2022-08-25] MEDS: clonazePAM 0.5 MG TABLET PO SCH ×2 (08:35→21:23)
[2022-08-25] MEDS: FERROUS SULFATE (325 MG) 325 MG/TAB TABLET PO SCH (08:35)
[2022-08-25] MEDS: QUETIAPINE FUMARATE 25 MG TABLET PO SCH ×2 (08:35→21:23)
[2022-08-25] MEDS: IV NS 0.9% 1,000 ML IV PRN (13:42)
[2022-08-25] MEDS: DOXAZOSIN MESYLATE (1 MG) 1 MG TABLET PO SCH (22:00)
[2022-08-25] MEDS: MIRTAZAPINE 15 MG TABLET PO SCH (23:03)
[2022-08-26] VITALS (7 sets, daily range): BP systolic 118–142; BP diastolic 59–73
[2022-08-26] MEDS: IV NS 0.9% 1,000 ML IV PRN ×2 (03:00→23:33)
[2022-08-26 05:49] LABS: BASOPHILS % (AUTO) 0.8 % (0.0-2.0); EOSINOPHILS % (AUTO) 9.8 % (0.0-6.0); HEMATOCRIT 25 % (39-51); HEMOGLOBIN 7.9 g/dL (13.5-17.5); LYMPHOCYTES # (AUTO) 1.3 K/uL (0.8-4.8); LYMPHOCYTES % (AUTO) 25.4 % (20.0-44.0); MEAN CORPUSCULAR HGB CONC 31 g/dl (31.0-36.0); MEAN CORPUSCULAR VOLUME 75 fL (80-96); MONOCYTES # (AUTO) 0.4 K/uL (0.1-1.30); MONOCYTES % (AUTO) 7.5 % (2.0-12.0); NEUTROPHILS # (AUTO) 2.8 K/uL (1.8-8.9); NEUTROPHILS % (AUTO) 56.5 % (43.0-81.0); PLATELET COUNT (AUTO) 276 K/uL (150-450); RED BLOOD CELL COUNT(AUTO) 3.36 MIL/uL (4.5-6.0); WHITE BLOOD COUNT (AUTO) 4.9 K/uL (4.3-11.0)
[2022-08-26 06:11] LABS: CALCIUM, SERUM 8.3 mg/dL (8.5-10.1); CARBON DIOXIDE 22 mmol/L (21-32); CHLORIDE 113 mmol/L (98-107); CREATININE 0.9 mg/dL (0.6-1.3); GLUCOSE 87 mg/dL (74-106); POTASSIUM 3.6 mmol/L (3.5-5.1); SODIUM SERUM 142 mmol/L (136-145); UREA NITROGEN, BLOOD 15 mg/dL (7-18)
[2022-08-26] MEDS: FERROUS SULFATE (325 MG) 325 MG/TAB TABLET PO SCH (08:42)
[2022-08-26] MEDS: QUETIAPINE FUMARATE 25 MG TABLET PO SCH ×2 (08:43→21:17)
[2022-08-26] MEDS: PANTOPRAZOLE 40 MG/PACK PACK PO SCH (08:43)
[2022-08-26] MEDS: SUCRALFATE 1 G/10 ML UDC PO SCH (08:43)
[2022-08-26] MEDS: AMLODIPINE BESYLATE 5 MG TABLET PO SCH (08:43)
[2022-08-26] MEDS: clonazePAM 0.5 MG TABLET PO SCH ×2 (08:44→21:17)
[2022-08-26] MEDS: LOSARTAN POTASSIUM 50 MG TABLET PO SCH (08:44)
[2022-08-26] MEDS: SUCRALFATE 1 G TABLET PO SCH (16:51)
[2022-08-26] MEDS: MIRTAZAPINE 15 MG TABLET PO SCH (22:05)
[2022-08-26] MEDS: DOXAZOSIN MESYLATE (1 MG) 1 MG TABLET PO SCH (22:05)
[2022-08-27] VITALS: BP 127/73
[2022-08-27 04:00] VITALS: BP 125/61
[2022-08-27 05:44] LABS: BASOPHILS % (AUTO) 0.8 % (0.0-2.0); EOSINOPHILS % (AUTO) 9.5 % (0.0-6.0); HEMATOCRIT 29 % (39-51); HEMOGLOBIN 8.9 g/dL (13.5-17.5); LYMPHOCYTES # (AUTO) 1.2 K/uL (0.8-4.8); LYMPHOCYTES % (AUTO) 20.5 % (20.0-44.0); MEAN CORPUSCULAR HGB CONC 31 g/dl (31.0-36.0); MEAN CORPUSCULAR VOLUME 76 fL (80-96); MONOCYTES # (AUTO) 0.6 K/uL (0.1-1.30); MONOCYTES % (AUTO) 9.9 % (2.0-12.0); NEUTROPHILS # (AUTO) 3.6 K/uL (1.8-8.9); NEUTROPHILS % (AUTO) 59.3 % (43.0-81.0); PLATELET COUNT (AUTO) 283 K/uL (150-450); WHITE BLOOD COUNT (AUTO) 6.1 K/uL (4.3-11.0)
[2022-08-27 06:00] LABS: CALCIUM, SERUM 8.4 mg/dL (8.5-10.1); POTASSIUM 3.7 mmol/L (3.5-5.1)
[2022-08-27 08:00] VITALS: BP 111/69
[2022-08-27] MEDS: LOSARTAN POTASSIUM 50 MG TABLET PO SCH (09:00)
[2022-08-27] MEDS: QUETIAPINE FUMARATE 25 MG TABLET PO SCH (09:00)
[2022-08-27] MEDS: AMLODIPINE BESYLATE 5 MG TABLET PO SCH (09:00)
[2022-08-27] MEDS: clonazePAM 0.5 MG TABLET PO SCH (09:00)
[2022-08-27] MEDS: PANTOPRAZOLE 40 MG/PACK PACK PO SCH (09:14)
[2022-08-27] MEDS: SUCRALFATE 1 G TABLET PO SCH (09:14)
[2022-08-27] MEDS: FERROUS SULFATE (325 MG) 325 MG/TAB TABLET PO SCH (09:14)
[2022-08-27 12:00] VITALS: BP 111/57
== END 2022-08-27 15:40 | DRG 377 ==
LOC: ER 17:17 → TELE 22:21
PROVIDERS: ADMIT Internal Medicine
PROC: 30233N1 Transfusion of Nonautologous Red Blood Cells into Peripheral Vein, Percutaneous Approach (ICD-10-PCS; principal; 2022-08-23)
PROC: 0DB68ZX Excision of Stomach, Via Natural or Artificial Opening Endoscopic, Diagnostic (ICD-10-PCS; 2022-08-26)
DX: K29.71 Gastritis, unspecified, with bleeding (principal); E43 Unspecified severe protein-calorie malnutrition; G93.41 Metabolic encephalopathy; N17.0 Acute kidney failure with tubular necrosis; T18.2XXA Foreign body in stomach, initial encounter; E87.5 Hyperkalemia; Z20.822 Contact with and (suspected) exposure to COVID-19; N40.0 Benign prostatic hyperplasia without lower urinary tract symptoms; D50.0 Iron deficiency anemia secondary to blood loss (chronic); K21.9 Gastro-esophageal reflux disease without esophagitis; K44.9 Diaphragmatic hernia without obstruction or gangrene; E78.5 Hyperlipidemia, unspecified; X58.XXXA Exposure to other specified factors, initial encounter; Y92.129 Unspecified place in nursing home as the place of occurrence of the external cause; I10 Essential (primary) hypertension; F01.50 Vascular dementia, unspecified severity, without behavioral disturbance, psychotic disturbance, mood disturbance, and anxiety; N13.9 Obstructive and reflux uropathy, unspecified; M62.50 Muscle wasting and atrophy, not elsewhere classified, unspecified site; Z79.82 Long term (current) use of aspirin; Z79.899 Other long term (current) drug therapy; F29 Unspecified psychosis not due to a substance or known physiological condition; E88.09 Other disorders of plasma-protein metabolism, not elsewhere classified; D63.8 Anemia in other chronic diseases classified elsewhere
CPT/HCPCS: 36415; 71045-TC; 80048-TC; 80076-TC; 82272-TC; 82962-TC; 83540-TC; 83735-TC; 84100-TC; 85025-TC; 85610-TC; 85730-TC; 86850-TC; 87081-TC; 88305-TC; 88313-TC; 88342; C9113; C9803; G0378; J2704; J7030; J7050; P9016

== ENCOUNTER 2023-05-06 21:49 | Emergency (ER) | payer MEDICARE, OTHER ==
[~2023-05-06] VITALS: Ht 175.3 cm; Wt 75.3 kg
[~2023-05-06 21:49] MED LIST changes: -MERO1VIA23 IV; -PANT40TA2 PO; +SUCR1ORA15 PO; -SUCR1TAB31 PO
[2023-05-06 22:00] VITALS: TEMP 97.8
[2023-05-06] MEDS ORDERED: LIDOCAINE HCL/PF 1% 30 ML VIAL TP ONE (22:30)
[2023-05-06 22:40] LABS: BASOPHILS # (AUTO) 0.1 K/uL (0.0-0.2); BASOPHILS % (AUTO) 0.5 % (0.0-2.0); EOSINOPHILS # (AUTO) 0.4 K/uL (0.0-0.7); EOSINOPHILS % (AUTO) 4.1 % (0.0-6.0); HEMATOCRIT 30 % (39-51); HEMOGLOBIN 9.5 g/dL (13.5-17.5); LYMPHOCYTES # (AUTO) 1.4 K/uL (0.8-4.8); LYMPHOCYTES % (AUTO) 13.5 % (20.0-44.0); MEAN CORPUSCULAR HEMOGLOBIN 23 PG (26.0-33.0); MEAN CORPUSCULAR HGB CONC 32 g/dl (31.0-36.0); MEAN CORPUSCULAR VOLUME 72 fL (80-96); MONOCYTES # (AUTO) 0.6 K/uL (0.1-1.30); MONOCYTES % (AUTO) 5.8 % (2.0-12.0); NEUTROPHILS % (AUTO) 76.1 % (43.0-81.0); PLATELET COUNT (AUTO) 237 K/uL (150-450); RED BLOOD CELL COUNT(AUTO) 4.16 MIL/uL (4.5-6.0); RED CELL DISTRIBUTION WIDTH 19.9 % (11.5-15.0); WHITE BLOOD COUNT (AUTO) 10.5 K/uL (4.3-11.0)
[2023-05-06 22:55] LABS: ALANINE AMINOTRANSFERASE 52 U/L (12-78); ALKALINE PHOSPHATASE 89 U/L (46-116); ASPARTATE AMINOTRANSFERASE 27 U/L (15-37); BILIRUBIN,DIRECT 0.1 mg/dL (0.0-0.2); BILIRUBIN,TOTAL 0.2 mg/dL (0.2-1.0); CALCIUM, SERUM 8.7 mg/dL (8.5-10.1); CARBON DIOXIDE 23 mmol/L (21-32); CHLORIDE 114 mmol/L (98-107); GLUCOSE 113 mg/dL (74-106); POTASSIUM 3.6 mmol/L (3.5-5.1); SODIUM SERUM 147 mmol/L (136-145); TOTAL PROTEIN, SERUM 6.9 g/dL (6.4-8.2); UREA NITROGEN, BLOOD 41 mg/dL (7-18)
[2023-05-07 01:20] VITALS: BP 135/75; O2SAT 99
== END 2023-05-07 01:20 ==
LOC: ER 21:52
DX: S01.81XA Laceration without foreign body of other part of head, initial encounter (principal); I10 Essential (primary) hypertension; E78.5 Hyperlipidemia, unspecified; K21.9 Gastro-esophageal reflux disease without esophagitis; Z79.82 Long term (current) use of aspirin; Z79.899 Other long term (current) drug therapy; W19.XXXA Unspecified fall, initial encounter; Y93.89 Activity, other specified; Y92.128 Other place in nursing home as the place of occurrence of the external cause; Y99.8 Other external cause status
CPT/HCPCS: 12013; 36415; 70450; 80048; 80076; 85025; 99284; J3490